=== PATIENT | male | born 1935 | race Caucasian/White ===

== ENCOUNTER 2019-12-23 07:42 | Outpatient (CLI) | payer MEDICARE, SELFPAY ==
[2019-12-23 08:10] LABS: Basophils Absolute Auto 0.04 K/mm3 (0.00-0.10); Basophils Percent Auto 0.7 % (0.0-1.0); Eosinophils Absolute Auto 0.29 K/mm3 (0.02-0.50); Eosinophils Percent Auto 4.9 % (1.0-6.0); Hematocrit 43.9 % (37.0-46.0); Hemoglobin 14.5 g/dL (12.4-15.3); Immature Granulocyte Absolute 0.01 K/mm3 (0.00-0.00); Immature Granulocyte Percent A 0.2 % (0.0-0.0); Mean Corpuscular Hemoglobin 30.5 pg (27.0-31.0); Mean Corpuscular Volume 92.2 fL (78.0-102.0); Mean Platelet Volume 10.8 fl (8.7-11.0); Monocytes Percent Auto 11.9 % (2.0-11.0); Neutrophils Absolute Auto 3.1 K/mm3 (1.7-7.2); Neutrophils Percent Auto 53.3 % (50.0-70.0); Platelet Count Result 182 K/mm3 (150-420); Red Blood Count 4.76 M/mm3 (4.70-6.10); Red Cell Distribution Width 12.4 % (11.6-14.4); White Blood Count 5.9 K/mm3 (4.8-10.8)
[2019-12-23 08:45] LABS: Hemoglobin A1C 6.7 % (<5.7)
[2019-12-23 08:48] LABS: Alanine Aminotransferase 18 U/L (16-63); Alkaline Phosphatase 61 U/L (46-116); Anion Gap 15.8 mmol/L (7-16); Aspartate Amino Transferase 18 U/L (15-37); Bilirubin,Total 0.5 mg/dL (0.00-1.00); Blood Urea Nitrogen 29 mg/dL (7-18); Calcium 8.7 mg/dL (8.5-10.1); Carbon Dioxide 25 mmol/L (21-32); Chloride 105 mmol/L (98-108); Cholesterol 188 mg/dL (0-200); Estimated Glomerular Filt Rate 55; Glucose 150 mg/dL (70-99); HDL Direct 48 mg/dL (40-60); LDL Cholesterol Calculated 110 mg/dL (<130); Osmolality Calculated 300 mOsm/kg (285-295); Potassium 4.8 mmol/L (3.5-5.1); Sodium 141 mmol/L (136-145); Total Protein 6.9 g/dL (6.4-8.2); Triglycerides 151 mg/dL (0-150)
== END 2019-12-23 07:43 | disposition home or self-care (01) ==
LOC: CHSLAB 07:45
PROVIDERS: PCP Nurse Practitioner Family; Visit Provider Nurse Practitioner Family
DX: E11.9 Type 2 diabetes mellitus without complications (principal); I10 Essential (primary) hypertension
CPT/HCPCS: 36415; 80053; 80061; 83036; 85025

== ENCOUNTER 2020-08-28 07:35 | Outpatient (CLI) | payer MEDICARE, SELFPAY ==
[2020-08-28 07:55] LABS: Hemoglobin A1C 6.8 % (<5.7)
== END 2020-08-28 07:36 | disposition home or self-care (01) ==
LOC: CHSLAB 07:37
PROVIDERS: PCP Family Medicine; Visit Provider Family Medicine
DX: E11.9 Type 2 diabetes mellitus without complications (principal)
CPT/HCPCS: 36415; 83036

== ENCOUNTER 2020-12-28 07:43 | Outpatient (CLI) | payer MEDICARE, SELFPAY ==
[2020-12-28 07:53] LABS: Hematocrit 41.6 % (37.0-46.0); Hemoglobin 13.9 g/dL (12.4-15.3); Mean Corpuscular HGB Conc 33.4 g/dL (32.0-36.0); Mean Corpuscular Volume 92.7 fL (78.0-102.0); Mean Platelet Volume 10.7 fl (8.7-11.0); Platelet Count Result 185 K/mm3 (150-420); Red Blood Count 4.49 M/mm3 (4.70-6.10); Red Cell Distribution Width 12.3 % (11.6-14.4); White Blood Count 5.7 K/mm3 (4.8-10.8)
[2020-12-28 09:00] LABS: Alanine Aminotransferase 22 U/L (16-63); Albumin Level 4.2 g/dL (3.4-5.0); Alkaline Phosphatase 72 U/L (46-116); Anion Gap 11 mmol/L (8-16); Aspartate Amino Transferase 17 U/L (15-37); Bilirubin,Total 0.5 mg/dL (0.00-1.00); Blood Urea Nitrogen 31 mg/dL (7-18); Calcium 9.1 mg/dL (8.5-10.1); Carbon Dioxide 24 mmol/L (21-32); Chloride 104 mmol/L (98-108); Estimated Glomerular Filt Rate 52; Glucose 156 mg/dL (70-99); Osmolality Calculated 297 mOsm/kg (285-295); Potassium 5.1 mmol/L (3.5-5.1); Sodium 139 mmol/L (136-145); Total Protein 7.2 g/dL (6.4-8.2)
== END 2020-12-28 07:44 | disposition home or self-care (01) ==
LOC: CHSLAB 07:45
PROVIDERS: PCP Family Medicine; Visit Provider Nurse Practitioner Family
DX: I10 Essential (primary) hypertension (principal)
CPT/HCPCS: 36415; 80053; 85027

== ENCOUNTER 2021-03-29 10:24 | Outpatient (CLI) | payer MEDICARE, SELFPAY ==
--- NOTE | 2021-03-29 10:29 | ECHO_ITS ---
Patient Info Name: Kevin Austin Age: 86 years : 1935 Gender: Male Ht: 74 in Wt: 200 lbs BSA: 2.18 m2 HR: 66 bpm BP: 133 / 58 mmHg Technical Quality: Good Exam Date: 03/29/2021 10:19 AM Exam Location: [facility] Patient Status: Outpatient Admit Date: 03/29/2021 Staff Ordering Physician: Gagandeep Zhu DO Bending Machine Set Up Operator: Jose Maradiaga RDCS, RT Attending Provider: Gagandeep Zhu DO Referring Physician: Marko MOSES; Exam Type: CA echo doppler color flow Study Info Indications I10 - Essential (primary) hypertension Complete two-dimensional, color flow and Doppler transthoracic echocardiogram is performed. Strain analysis performed. Summary 1. Complete two-dimensional, color flow and Doppler transthoracic echocardiogram is performed. 2. Left ventricular chamber dimension is normal. 3. Left ventricular systolic function is normal, estimated at 60-65%. 4. There is mildly increased left ventricular wall thickness. 5. The left ventricular diastolic function is grade I diastolic dysfunction. 6. E/e' 6 is not elevated. Left Ventricle E/e' 6 is not elevated. Left ventricular chamber dimension is normal. Left ventricular systolic function is normal, estimated at 60-65%. There is mildly increased left ventricular wall thickness. The left ventricular diastolic function is grade I diastolic dysfunction. Right Ventricle Right ventricular systolic function is normal and with normal TAPSE 2.7 cm. Right ventricular chamber dimension is normal. Left Atria Left atrial chamber dimension is normal. Right Atria Right atrial chamber dimension is normal. Aortic Valve The aortic valve is trileaflet. There is no aortic valve stenosis. There is no aortic valve regurgitation. Pulmonic Valve There is no pulmonic regurgitation. Mitral Valve There is no mitral valve stenosis. There is no mitral valve regurgitation. Tricuspid Valve There is no tricuspid valve regurgitation. Pericardium/Pleural There is no pericardial effusion. Inferior Vena Cava Normal inferior vena cava with >50% collapse upon inspiration consistent with normal right atrial pressure, 5 mmHg. Aorta The aortic root size at the sinus of Valsalva is normal. Left Ventricular Outflow Tract Name Value Normal LVOT 2D LVOT Diameter 2.0 cm LVOT Doppler LVOT Peak Velocity 96 cm/s LVOT Peak Gradient 4 mmHg LVOT Mean Gradient 2 mmHg LVOT VTI 18 cm LVOT VTI/AV VTI Ratio 0.7 LVOT Stroke Volume 53 ml Mitral Valve Name Value Normal MV Doppler MV Decel [place] 268 cm/s2 MV PHT 62 ms MV Area (PHT) 3.5 cm2 4.0-5
== END 2021-03-29 10:25 | disposition home or self-care (01) ==
LOC: CHSIMG 10:25
PROVIDERS: PCP Family Medicine; Visit Provider Family Medicine
DX: I10 Essential (primary) hypertension (principal)
CPT/HCPCS: 93306

== ENCOUNTER 2022-01-08 11:14 | Outpatient (CLI) | payer MEDICARE, SELFPAY ==
[2022-01-08 11:26] LABS: Hematocrit 41.1 % (37.0-46.0); Hemoglobin 13.5 g/dL (12.4-15.3); Mean Corpuscular HGB Conc 32.8 g/dL (32.0-36.0); Mean Corpuscular Hemoglobin 31.1 pg (27.0-31.0); Mean Corpuscular Volume 94.7 fL (78.0-102.0); Mean Platelet Volume 10.5 fl (8.7-11.0); Platelet Count Result 224 K/mm3 (150-420); Red Blood Count 4.34 M/mm3 (4.70-6.10); Red Cell Distribution Width 12.3 % (11.6-14.4); White Blood Count 6.8 K/mm3 (4.8-10.8)
[2022-01-08 11:37] LABS: Hemoglobin A1C 6.9 % (<5.7)
[2022-01-08 11:42] LABS: Alanine Aminotransferase 16 U/L (16-63); Albumin Level 4.3 g/dL (3.4-5.0); Alkaline Phosphatase 69 U/L (46-116); Anion Gap 11 mmol/L (8-16); Aspartate Amino Transferase 16 U/L (15-37); Bilirubin,Total 0.4 mg/dL (0.00-1.00); Blood Urea Nitrogen 41 mg/dL (7-18); Carbon Dioxide 26 mmol/L (21-32); Chloride 105 mmol/L (98-108); Cholesterol 145 mg/dL (0-200); Estimated Glomerular Filt Rate 37; Glucose 118 mg/dL (70-99); HDL Direct 57 mg/dL (40-60); LDL Cholesterol Calculated 62 mg/dL (<130); Osmolality Calculated 305 mOsm/kg (285-295); Potassium 4.5 mmol/L (3.5-5.1); Sodium 142 mmol/L (136-145); Total Protein 7.6 g/dL (6.4-8.2); Triglycerides 132 mg/dL (0-150)
[2022-01-08 11:45] LABS: Creatinine Urine 72.02 mg/dL (40-278)
[2022-01-08 11:46] LABS: MALB Creatinine Ratio 219.9 mg/g (0-30); Microalbumin Urine Random 158.4 mg/L
== END 2022-01-08 11:15 | disposition home or self-care (01) ==
LOC: CHSLAB 11:18
PROVIDERS: PCP Family Medicine; Visit Provider Family Medicine
DX: E11.59 Type 2 diabetes mellitus with other circulatory complications (principal); I15.2 Hypertension secondary to endocrine disorders
CPT/HCPCS: 36415; 80053; 80061; 82043; 83036; 85027

== ENCOUNTER 2024-08-11 11:37 | Outpatient (CLI) | payer MEDICARE, SELFPAY ==
[2024-08-11 12:31] LABS: MALB Creatinine Ratio 147.1 mg/g (0-30); Microalbumin Urine Random 181.4 mg/L
[2024-08-11 13:06] LABS: Alanine Aminotransferase 16 U/L (16-63); Albumin Level 4.4 g/dL (3.4-5.0); Alkaline Phosphatase 82 U/L (46-116); Anion Gap 12 mmol/L (4-12); Aspartate Amino Transferase 13 U/L (15-37); Bilirubin,Total 0.4 mg/dL (0.00-1.00); Blood Urea Nitrogen 60 mg/dL (7-18); Carbon Dioxide 26 mmol/L (21-32); Chloride 105 mmol/L (98-108); Estimated Glomerular Filt Rate 20; Glucose 112 mg/dL (70-99); Osmolality Calculated 313 mOsm/kg (285-295); Potassium 5.3 mmol/L (3.5-5.1); Sodium 143 mmol/L (136-145); Total Protein 7.4 g/dL (6.4-8.2); Vitamin B12 277 pg/mL (193-986)
[2024-08-11 13:28] LABS: Thyroid Stimulating Hormone Reflex 0.72 u/IU/mL (0.36-3.74)
[2024-08-11 17:59] LABS: Prostate Specific Antigen 0.9 ng/mL (< OR = 4.0)
== END 2024-08-11 11:38 | disposition home or self-care (01) ==
PROVIDERS: PCP Family Medicine; Visit Provider Family Medicine
DX: E11.9 Type 2 diabetes mellitus without complications (principal); E53.8 Deficiency of other specified B group vitamins; R41.9 Unspecified symptoms and signs involving cognitive functions and awareness; E03.9 Hypothyroidism, unspecified; Z12.5 Encounter for screening for malignant neoplasm of prostate
CPT/HCPCS: 36415; 80053; 82043; 82607; 82746; 83036; 84153; 84443; G0103

== ENCOUNTER 2024-08-11 14:55 | Emergency (ER) | payer MEDICARE, SELFPAY ==
[2024-08-11] VITALS (49 sets, daily range): BP systolic 118–152; BP diastolic 59–89; PULSE 66–97; RESP 12–23; TEMP 36.6–36.9; O2SAT 83–100
--- NOTE | ~2024-08-11 | CT_ITS ---
EXAMINATION: CT abdomen pelvis wo con DATE: 08/11/2024 19:05 INDICATION: Acute renal failure TECHNIQUE: Computed tomography (CT) of the abdomen and pelvis was performed without intravenous contr ast. The dose-length product was 542.70 mGy-cm. Automated exposure control and iterative reconstructi on technique were employed. COMPARISON: No prior studies for comparison. FINDINGS: Heart size upper normal. Small pericardial effusion. There is atherosclerosis of the aorta and coronary arteries. Gallbladder is moderately distended. There are calcified granulomas of the spl een. The pancreas, adrenal glands and kidneys are unremarkable for noncontrast CT. There is mild symm etric perinephric stranding. No hydronephrosis. Bladder is unremarkable. No abnormal pelvic masses or fluid collections. Moderate lumbar spondylosis. Mild symmetric osteoarthritis of the hips. There is grade 1 degenerative spondylolisthesis at L4-5. Small hiatal hernia. IMPRESSION: 1. No acute abdominal abnormality. 2: Small hiatal hernia. Reviewed, dictated and finalized at location A. TROOM CLERK
--- NOTE | ~2024-08-11 | XR_ITS ---
EXAMINATION: XR chest 1V portable DATE: 08/11/2024 15:40 INDICATION: Abnormal blood work TECHNIQUE: frontal view of the chest was obtained. COMPARISON: Chest radiograph dated 12/15/2013 FINDINGS: The lungs remain clear with no focal airspace opacities, pulmonary edema, pleural effusion or pneumot horax. The cardiomediastinal silhouette is normal. Severe bilateral glenohumeral osteoarthritis. IMPRESSION: 1. No acute cardiopulmonary disease. Reviewed, dictated and finalized at location B. MIST
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
--- NOTE | 2024-08-11 15:18 | ECG_ITS ---
Test Date: 2024-08-11 15:47:38 Measurements Intervals Amonate Rate: 69 P: 89 MN: 204 QRS: -46 QRSD: 137 T: 43 QT: 412 QTc: 444 Interpretive Statements SINUS RHYTHM INDETERMINATE AXIS RIGHT BUNDLE BRANCH BLOCK [120+ ms QRS DURATION, UPRIGHT V1, 40+ ms S IN I/aVL/V4/V5/V6] LEFT ANTERIOR FASCICULAR BLOCK [QRS AXIS <= -45, QR IN I, RS IN II] POSSIBLE SEPTAL MYOCARDIAL INFARCTION , PROBABLY OLD [30 ms Q WAVE IN V1/V2] No previous ECG available for comparison Electronically Signed On 08-12-2024 09:16:23 RADAR SYSTEMS ENGINEER by Nic Hay M.D.
[2024-08-11 15:37] LABS: Add Urine Microscopic? YES; Appearance Urine Clear (Clear); Bilirubin Urine Negative (Negative); Blood Urine Negative (Negative); Color Urine Light Yellow (Yellow); Glucose Urine UA Negative (Negative); Ketones Urine Negative (Negative); Leukocyte Esterase Ur Negative LEU/UL (Negative); Nitrate Urine Negative (Negative); Protein Urine 1+ (Negative); Specific Grav Ur 1.025 (1.010-1.020); Urobilinogen Urine 0.2 mg/dL (0.2-1.0); pH Urine 5.5 (5.0-8.0)
[2024-08-11 15:37] LABS: Basophils Absolute Auto 0.03 K/mm3 (0.00-0.10); Basophils Percent Auto 0.4 % (0.0-1.0); Eosinophils Absolute Auto 0.08 K/mm3 (0.02-0.50); Eosinophils Percent Auto 1.2 % (1.0-6.0); Hematocrit 28.6 % (37.0-46.0); Hemoglobin 9.2 g/dL (12.4-15.3); Immature Granulocyte Absolute 0.04 K/mm3 (0.00-0.00); Immature Granulocyte Percent A 0.6 % (0.0-0.0); Lymphocytes Absolute Auto 1.39 K/mm3 (1.10-4.50); Lymphocytes Percent Auto 20.4 % (18.0-42.0); Mean Corpuscular HGB Conc 32.2 g/dL (32-36); Mean Corpuscular Hemoglobin 30.5 pg (27.0-31.0); Mean Corpuscular Volume 94.7 fL (78.0-102.0); Mean Platelet Volume 9.9 fl (8.7-11.0); Monocytes Absolute Auto 0.74 K/mm3 (0.10-0.90); Monocytes Percent Auto 10.9 % (2.0-11.0); Neutrophils Absolute Auto 4.52 K/mm3 (1.70-7.20); Neutrophils Percent Auto 66.5 % (50.0-70.0); Platelet Count Result 269 K/mm3 (150-420); Red Blood Count 3.02 M/mm3 (4.70-6.10); Red Cell Distribution Width 12.3 % (11.6-14.4); White Blood Count 6.8 K/mm3 (4.8-10.8)
[2024-08-11 15:47] LABS: Bacteria Urine Trace /hpf; RBC Urine None seen /hpf (0-2); Squamous Epithelial Cell Urine Rare /hpf (Few); WBC Urine None seen /hpf (0-3)
[2024-08-11 15:55] LABS: Troponin I 10.7 ng/L (0.00-60.4)
[2024-08-11 15:56] LABS: Lactic Acid Reflex 2.3 mmol/L (0.4-2.0)
[2024-08-11] MEDS: INSULIN HUMAN REGULAR (*BKC) 1,000 UNITS/10 ML VIAL 5 UNITS IV PUSH (15:56)
[2024-08-11] MEDS: DEXTROSE 50% 25 GM/50 ML SYRINGE IV PUSH (15:59)
[2024-08-11 16:00] LABS: Anion Gap 14 mmol/L (4-12); Blood Urea Nitrogen 63 mg/dL (7-18); Calcium 8.5 mg/dL (8.5-10.1); Carbon Dioxide 25 mmol/L (21-32); Chloride 103 mmol/L (98-108); Estimated CRCL calculation 17 ml/min; Estimated Glomerular Filt Rate 18; Glucose 151 mg/dL (70-99); Magnesium 1.6 mg/dL (1.8-2.4); NT Pro B Type Natriuretic Pept 122 pg/mL (0-450); Osmolality Calculated 315 mOsm/kg (285-295); Potassium 4.9 mmol/L (3.5-5.1); Sodium 142 mmol/L (136-145)
[2024-08-11] MEDS: SODIUM BICARBONATE 8.4% 50 MEQ/50 ML SYRINGE IV PUSH (16:03)
[2024-08-11] MEDS: CALCIUM GLUC 1,000 MG/NS 50 ML 1,000 MG/50 ML BAG 100 MG IVPB (16:09)
[2024-08-11 16:12] LABS: SARS-CoV-2 RNA PCR Negative (Negative)
[2024-08-11 16:14] LABS: Influenza A QL RT-PCR Negative (Negative); Influenza B QL RT-PCR Negative (Negative); RSV RNA, RT-PCR Negative (Negative)
[2024-08-11] MEDS: SODIUM CHLORIDE 0.9% IV 500 ML 50 ML IV CONT (16:40)
[2024-08-11 18:34] LABS: Reflex Lactic Acid Yes or No Add Lactic
--- NOTE | 2024-08-11 18:55 | PC.NURSE ---
ASSUMED CARE. REPORT RECEIVED FROM MARK OGDEN. MARK OGDEN IS ON PHONE GIVING REPORT TO [facility] FOR TRANSFER.
[2024-08-11 19:05] LABS: Lactic Acid 2.3 mmol/L (0.4-2.0)
--- NOTE | 2024-08-11 19:11 | PC.NURSE ---
Addendum entered by Monica Dickson RN 08/11/24 22:11: CORRECTION. PATIENT TO ROOM 3071 Original Note: TRANSFER FORM SIGNED BY PATIENT AND PLACED ONTO CHART. PATIENT UPDATED THAT HE IS TO BE TRANSFERRED TO [facility] ROOM 1907. PATIENT VERBALIZED UNDERSTANDING
--- NOTE | 2024-08-11 19:53 | PC.NURSE ---
FAMILY MEMBER BROUGHT PATIENTS DRIVERS LICENSE AND INSURANCE CARDS. PLACE INTO FOLDER WITH TRANSFER DOCUMENTATION
== END 2024-08-11 20:54 | disposition short-term general hospital (02) ==
PROVIDERS: Emergency Provider Internal Medicine Critical Care Medicine; PCP Family Medicine
DX: D64.9 Anemia, unspecified (principal); I12.9 Hypertensive chronic kidney disease with stage 1 through stage 4 chronic kidney disease, or unspecified chronic kidney disease; E11.22 Type 2 diabetes mellitus with diabetic chronic kidney disease; N18.9 Chronic kidney disease, unspecified; N17.9 Acute kidney failure, unspecified; J43.9 Emphysema, unspecified; Z87.891 Personal history of nicotine dependence; Z20.822 Contact with and (suspected) exposure to COVID-19
CPT/HCPCS: 36415; 71045; 74176; 80048; 81001; 83605; 83735; 83880; 84484; 85025; 87637; 93005; 96361; 96365; 96375; 99285; J0612; J1815; J7040

== ENCOUNTER 2024-08-18 11:41 | Outpatient (CLI) | payer MEDICARE, SELFPAY ==
[2024-08-18 12:17] LABS: Alanine Aminotransferase 25 U/L (16-63); Albumin Level 4.2 g/dL (3.4-5.0); Alkaline Phosphatase 107 U/L (46-116); Anion Gap 14 mmol/L (4-12); Aspartate Amino Transferase 18 U/L (15-37); Bilirubin,Total 0.4 mg/dL (0.00-1.00); Blood Urea Nitrogen 28 mg/dL (7-18); Calcium 8.7 mg/dL (8.5-10.1); Carbon Dioxide 24 mmol/L (21-32); Chloride 105 mmol/L (98-108); Estimated Glomerular Filt Rate 33; Glucose 170 mg/dL (70-99); Osmolality Calculated 305 mOsm/kg (285-295); Potassium 4.9 mmol/L (3.5-5.1); Sodium 143 mmol/L (136-145)
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
--- OUTSIDE RECORDS SUMMARY | 2024-08-20 00:02 | XMS_ITS | Encounter Summary ---
Author Organization [facility] Address [address] [place] [address] Care Team Providers Care Project Management Instructor Name Role Phone Unavailable Primary Care Provider [...] on file Legal Sex Male 6:30 PM HUMAN RESOURCES REPRESENTATIVE Gender Identity Not on file Sexual Orientation Not on file documented as of this encounter Plan of Treatment Not on file documented as of this encounter Visit Diagnoses Not on filedocumented in this encounter
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
== END 2024-08-18 11:42 | disposition home or self-care (01) ==
LOC: CHSLAB 11:42
PROVIDERS: PCP Family Medicine; Visit Provider Family Medicine
DX: E11.9 Type 2 diabetes mellitus without complications (principal); N17.9 Acute kidney failure, unspecified
CPT/HCPCS: 36415; 80053; 83036

== ENCOUNTER 2024-09-24 09:40 | Outpatient (CLI) | payer MEDICARE, SELFPAY ==
[2024-09-24 09:56] LABS: Basophils Absolute Auto 0.04 K/mm3 (0.00-0.10); Basophils Percent Auto 0.6 % (0.0-1.0); Eosinophils Absolute Auto 0.16 K/mm3 (0.02-0.50); Eosinophils Percent Auto 2.4 % (1.0-6.0); Hematocrit 36.4 % (37.0-46.0); Hemoglobin 11.4 g/dL (12.4-15.3); Immature Granulocyte Absolute 0.03 K/mm3 (0.00-0.00); Immature Granulocyte Percent A 0.5 % (0.0-0.0); Lymphocytes Percent Auto 24.2 % (18.0-42.0); Mean Corpuscular HGB Conc 31.3 g/dL (32-36); Mean Corpuscular Hemoglobin 29.9 pg (27.0-31.0); Mean Corpuscular Volume 95.5 fL (78.0-102.0); Monocytes Absolute Auto 0.75 K/mm3 (0.10-0.90); Monocytes Percent Auto 11.3 % (2.0-11.0); Neutrophils Absolute Auto 4.04 K/mm3 (1.70-7.20); Platelet Count Result 297 K/mm3 (150-420); Red Blood Count 3.81 M/mm3 (4.70-6.10); White Blood Count 6.6 K/mm3 (4.8-10.8)
[2024-09-24 10:10] LABS: Creatinine Urine 67.21 mg/dL (40-278)
[2024-09-24 10:11] LABS: MALB Creatinine Ratio 595.1 mg/g (0-30); Microalbumin Urine Random > 400.0 mg/L
[2024-09-24 10:20] LABS: Alanine Aminotransferase 21 U/L (16-63); Albumin Level 4.1 g/dL (3.4-5.0); Alkaline Phosphatase 97 U/L (46-116); Anion Gap 10 mmol/L (4-12); Aspartate Amino Transferase 14 U/L (15-37); Bilirubin,Total 0.3 mg/dL (0.00-1.00); Blood Urea Nitrogen 34 mg/dL (7-18); Calcium 8.8 mg/dL (8.5-10.1); Carbon Dioxide 28 mmol/L (21-32); Chloride 104 mmol/L (98-108); Estimated Glomerular Filt Rate 30; Glucose 246 mg/dL (70-99); Osmolality Calculated 309 mOsm/kg (285-295); Sodium 142 mmol/L (136-145); Total Protein 7.4 g/dL (6.4-8.2)
== END 2024-09-24 09:41 | disposition home or self-care (01) ==
LOC: CHSLAB 09:41
PROVIDERS: PCP Family Medicine; Visit Provider Family Medicine
DX: N17.9 Acute kidney failure, unspecified (principal); N18.9 Chronic kidney disease, unspecified; E11.9 Type 2 diabetes mellitus without complications
CPT/HCPCS: 36415; 80053; 82043; 85025

== ENCOUNTER 2024-12-22 08:45 | Outpatient (CLI) | payer MEDICARE, SELFPAY ==
--- OUTSIDE RECORDS SUMMARY | 2024-12-22 08:51 | XMS_ITS | Clinical Summary ---
Author Organization [facility] Address [address] [place] [phone] Phone Care Team Providers Care Field Case Manager Name Role Phone Unavailable Primary Care Provider Unavailabl e Allergies No known active allergies Medications diltiaZEM (CARDIZEM LA) 360 mg Extended Release 24 hour tablet Take 360 mg by mouth daily. Active metFORMIN (GLUCOPHAGE) 1,000 mg tablet Take 1,000 mg by mouth 2 times daily with meals. Active atorvastatin (LIPITOR) 20 mg tablet Take 20 mg by mouth daily. Active lisinopriL (PRINIVIL) 5 mg tablet Take 1 Tablet (5 mg) by mouth daily. 30 Tablet 1 08/14/2024 Active Active Problems Problem Noted Date Diagnosed Date Primary hypertension 08/12/2024 Diabetes type 2, controlled 08/11/2024 Hyperlipidemia 08/11/2024 Resolved Problems Problem Noted Date Diagnosed Date Resolved Date Acute kidney injury superimp osed on chronic kidney disease 08/11/2024 08/13/2024 Hyperkalemia 08/11/2024 08/13/2024 COPD (chronic obstructive pulmonary disease) 08/12/2024 Emphysema lung 08/11/2024 08/12/2024 Chronic diastolic congestive heart failure 08/11/2024 08/12/2024 Encounters Date Type Department Care Team Description 12/16/2024 External Device Data [facility] ABSTRACTION Provider, Abstract 12/15/2024 External Device Data [facility] ABSTRACTION Provider, Abstract 12/14/2024 External Device Data [facility]STRACTION Provider, Abstract 11/23/2024 External Device Data [facility]CTION Provider, Abstract 11/23/2024 External Device Data [facility] ABSTRACTION Provider, Abstract 10/26/2024 External Device Data [facility] ABSTRACTION Provider, Abstract 10/19/2024 External Device Data [facility]STRACTION Provider, Abstract 10/13/2024 External Device Data [facility] ABSTRACTION Provider, Abstract 10/02/2024 External Device Data [facility] ABSTRACTION Provider, Abstract 10/01/2024 External Device Data [facility] ABSTRACTION Provider, Abstract from Last 3 Months Social History Tobacco Use Types Packs/Day Years Used Date Smoking Tobacco: Former Cigarettes Smokeless Tobacco: Never Tobacco Cessation:Counseling Given: Not Answered Alcohol Use Standard Drinks/Week Comments Yes 0 (1 standard drink = 0.6 oz pur e alcohol) Feeling Safe Answer Date Recorded Are you in a relationship wi th someone who hurts you emotionally and/or physically? No 08/11/2024 Food Insecurity Answer Date Recorded Patient needs follow up regardin 11/18/2024 Transportation Needs Answer Date Record ed Patient needs follow up regardin 11/18/2024 Housing Stability Answer Date Recorded Social/Environmental Concerns No concerns Utility Needs Answer Date Recorded Patient needs follow up regardin 11/18/2024 Sex and Gender Information Value Date Recorded Sex Assigned at Not on file Legal Sex Male 6:30 PM EMERGENCY VETERINARY ASSISTANT Gender Identity Not on file Sexual Orientation Not on file Last Filed Vital Signs Vital Sign Reading Time Taken Comments Blood Pressure 138/71 08/13/2024 12:17 PM EMERGENCY VETERINARY ASSISTANT Pulse 74 08/13/2024 12:17 PM EMERGENCY VETERINARY ASSISTANT Temperature 36.7 C (98 F) 08/13/2024 12:17 PM EMERGENCY VETERINARY ASSISTANT Respiratory Rate 20 08/13/2024 12:1 7 PM EMERGENCY VETERINARY ASSISTANT Oxygen Saturation 97% 08/13/2024 12: 17 PM EMERGENCY VETERINARY ASSISTANT Inhaled Oxygen Concentration - - Weight 77.5 kg (170 lb 13.7 oz) 08/13/2024 4:52 AM EMERGENCY VETERINARY ASSISTANT Height 188 cm (6' 2) 08/11/2024 10:51 PM EMERGENCY VETERINARY ASSISTANT Body Mass Index 21.94 08/11/2024 10:51 PM EMERGENCY VETERINARY ASSISTANT Plan of Treatment Health Maintenance Due Date Last Done Comments DIABETES ANNUAL FOOT EXAM 01/14/1953 DIABETES ANNUAL RETINAL EXAM 01/14/1953 DIABETES MICROALBUMIN ANNUAL SCREEN 01/14/1954 LDL CHOLESTEROL ANNUAL 01/14/1954 PNEUMOCOCCAL VACCINE 50+ YEA RS (1 of 2 - PCV) 01/14/1955 ZOSTER VACCINE (1 of 2) 01/14/1986 RSV VACCINE (60+ or ) (1 - 1-dose 75+ series) 01/14/2011 INFLUENZA VACCINE (#1) 2024 DIABETES HBA1C Q 6 MONTHS 02/09/2025 08/12/2024, 09/2024 DTAP/TDAP/TD VACCINES (2 - Td or Tdap) 07/29/2034 Procedures Procedure Name Priority Date/Time Associated Diagnosis Comments HEMOGLOBIN A1C Routine 08/12/2024 1:38 AM EMERGENCY VETERINARY ASSISTANT from Last 3 Months or Most Recently Relevant to Health Maintenance Results * (ABNORMAL) HEMOGLOBIN A1C (08/12/2024 1:38 AM EMERGENCY VETERINARY ASSISTANT) HEMOGLOBIN A1C 7.1(H) <5.7 % 08/12/2024 2:39 AM EMERGENCY VETERINARY ASSISTANT [facility] EST. AVG GLUCOSE, A1C 157 mg/dL 08/12/2024 2:39 AM EMERGENCY VETERINARY ASSISTANT [facility] Blood Venipuncture / Unknown 08/12/2024 1:38 AM EMERGENCY VETERINARY ASSISTANT 08/12/2024 2:08 AM EMERGENCY VETERINARY ASSISTANT Narrative [facility] - 08/12/2024 2:39 AM EMERGENCY VETERINARY ASSISTANT HGB A1C INTERPRETATION NORMAL: <5.7% PRE-DIABETES: 5.7 - 6.4% DIABETES: 6.5% OR GREATER Montana Lin MD CHEMISTRY ORDERABLES Final Result [facility] CLIA# [id number] [address] Abdi[address]ison MCLAIN[place]RYSTAL LUNA FRANK [id number] from Last 3 Months or Most Recently Relevant to Health Maintenance Insurance [employer] MEDICARE SUPPLEMENT MEDICARE PART A AND B Advance Directives For more information, please contact: [phone] * Full Code (Latest Code Status on File) Date Activated Date Inactivated Comments 08/11/2024 11:50 PM 08/13/2024 5:27 PM
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
[2024-12-22 09:13] LABS: Basophils Absolute Auto 0.06 K/mm3 (0.00-0.10); Basophils Percent Auto 0.8 % (0.0-1.0); Eosinophils Absolute Auto 0.15 K/mm3 (0.02-0.50); Eosinophils Percent Auto 1.9 % (1.0-6.0); Hematocrit 37.4 % (37.0-46.0); Hemoglobin 12.1 g/dL (12.4-15.3); Immature Granulocyte Absolute 0.01 K/mm3 (0.00-0.00); Immature Granulocyte Percent A 0.1 % (0.0-0.0); Lymphocytes Absolute Auto 1.69 K/mm3 (1.10-4.50); Lymphocytes Percent Auto 21.4 % (18.0-42.0); Mean Corpuscular HGB Conc 32.4 g/dL (32-36); Mean Corpuscular Volume 92.6 fL (78.0-102.0); Mean Platelet Volume 10.8 fl (8.7-11.0); Monocytes Absolute Auto 0.81 K/mm3 (0.10-0.90); Monocytes Percent Auto 10.3 % (2.0-11.0); Neutrophils Absolute Auto 5.16 K/mm3 (1.70-7.20); Neutrophils Percent Auto 65.5 % (50.0-70.0); Platelet Count Result 229 K/mm3 (150-420); Red Blood Count 4.04 M/mm3 (4.70-6.10); Red Cell Distribution Width 13.9 % (11.6-14.4); White Blood Count 7.9 K/mm3 (4.8-10.8)
[2024-12-22 09:28] LABS: Creatinine Urine 138.3 mg/dL
[2024-12-22 10:13] LABS: Alanine Aminotransferase 15 U/L (6-50); Albumin Level 4.3 g/dL (3.5-5.1); Alkaline Phosphatase 96 U/L (38-126); Anion Gap 8 mmol/L (4-12); Aspartate Amino Transferase 18 U/L (17-59); Bilirubin,Total 0.4 mg/dL (0.2-1.3); Blood Urea Nitrogen 40 mg/dL (9-20); Calcium 8.8 mg/dL (8.4-10.2); Carbon Dioxide 21 mmol/L (22-30); Chloride 111 mmol/L (98-107); Cholesterol 123 mg/dL (0-200); Estimated Glomerular Filt Rate 30; Glucose 175 mg/dL (65-110); HDL Direct 55 mg/dL; LDL Cholesterol Calculated 41 mg/dL (<130); Osmolality Calculated 303 mOsm/kg (285-295); Potassium 4.4 mmol/L (3.4-5.0); Sodium 140 mmol/L (137-145); Total Protein 6.9 g/dL (6.3-8.2); Triglycerides 137 mg/dL (<150)
[2024-12-22 11:39] LABS: MALB Creatinine Ratio 549.5 mg/g (0-30); Microalbumin Urine Random > 760.0 mg/L (0-16.7)
== END 2024-12-22 08:46 | disposition home or self-care (01) ==
LOC: CHSLAB 08:47
PROVIDERS: PCP Family Medicine; Visit Provider Family Medicine
DX: N18.9 Chronic kidney disease, unspecified (principal); E11.59 Type 2 diabetes mellitus with other circulatory complications; I15.2 Hypertension secondary to endocrine disorders
CPT/HCPCS: 36415; 80053; 80061; 82043; 83036; 85025